=== PATIENT | female | born 1975 | race Caucasian/White ===

== ENCOUNTER 2020-11-19 09:16 | Outpatient (CLI) | payer OTHER | END 2020-11-19 09:17 | disposition home or self-care (01) | LOC: BICMAMMO 09:16 | PROVIDERS: ATTEND Family Medicine | DX: Z12.31 Encounter for screening mammogram for malignant neoplasm of breast (principal) | CPT/HCPCS: 77063; 77067 ==

== ENCOUNTER 2021-01-31 21:15 | Inpatient (IN) | payer OTHER ==
[~2021-01-31 21:15] MED LIST: Heparin 1,000 UNITS/ML VIAL ONE
[2021-01-31] MEDS ORDERED: hydrALAZINE 20 MG/ML VIAL SLOW IVP PRN (21:51)
[2021-01-31] MEDS ORDERED: Acetaminophen 650 MG Suppository PR PRN (21:55)
[2021-01-31] MEDS ORDERED: Enoxaparin Sodium 40 MG/0.4 ML SYRINGE SC SCH (22:00)
[2021-02-01] MEDS: Piperacillin/Tazobactam 4.5 GM in Sodium Chloride 0.9% 100 ML IVPB SCH ×5 (00:20→23:23)
[2021-02-01] MEDS: Lactated Ringer's 1,000 ML IV SCH ×4 (00:21→23:45)
[2021-02-01 01:08] VITALS: BMI 43.4
[2021-02-01 01:29] LABS: SARS-CoV-2 NAA Rapid Test Not Detected (NotDetected)
[2021-02-01 05:24] LABS: #Basophils 0.1 thou/uL (0.0-0.2); #Eosinphils 0.1 thou/uL (0.0-0.7); #Lymphocytes 1.6 thou/uL (1.20-3.40); #Monocytes 1.6 thou/uL (0.11-0.59); #Neutrophils 9.7 thou/uL (1.40-6.50); %Basophils 0.4 % (0.0-1.0); %Eosinophils 0.6 % (0.0-10.0); %Lymphocytes 12.2 % (21.0-51.0); %Monocytes 12.5 % (0.0-10.0); %Neutrophils 74.3 % (42.0-75.0); Hemoglobin 10.9 g/dL (12.0-16.0); Mean Corpuscular HGB CONC 32.8 g/dL (32.0-36.0); Mean Corpuscular Hemoglobin 29.1 pg (27.0-31.0); Mean Corpuscular Volume 88.7 fL (78.0-98.0); Mean Platelet Volume 7.6 fL (7.4-10.4); Platelet Count 514 thou/uL (130-400); RBC Distribution Width 14.2 % (11.5-14.5); Red Blood Cell (RBC) Count 3.74 mill/uL (4.20-5.40); White Blood Cell (WBC) Count 13.1 thou/uL (4.8-10.8)
[2021-02-01 05:45] LABS: ALT (SGPT) 50 U/L (8-55); AST (SGOT) 44 U/L (5-34); Albumin 3.1 g/dL (3.5-5.0); Alkaline Phosphatase 173 U/L (40-110); Anion Gap 14 mmol/L (10-20); BUN (Urea Nitrogen) 7 mg/dL (7.0-18.7); Bilirubin, Total 0.6 mg/dL (0.2-1.2); Calc. Creatinine Clearance 197 mL/min (70-130); Calcium 8.8 mg/dL (7.8-10.44); Carbon Dioxide 24 mmol/L (22-29); Chloride 102 mmol/L (98-107); Globulin 3.6 g/dL (2.4-3.5); Glucose 103 mg/dL (70-105); Protein, Total 6.7 g/dL (6.0-8.3); Sodium 136 mmol/L (136-145)
[2021-02-01] MEDS: Ondansetron PF 4 MG/2 ML Vial IVP PRN ×2 (07:04→13:54)
[2021-02-01] MEDS: Famotidine/PF 20 mg/2ml Vial SLOW IVP SCH ×2 (08:09→20:13)
[2021-02-01] MEDS: Fluconazole In NaCl,Iso-Osm 200 MG in Premix Bag 1 BAG IVPB SCH (08:09)
[2021-02-01] MEDS ORDERED: Iopamidol 370 76% 50 ML VIAL FS ONE (09:05)
[2021-02-01] MEDS ORDERED: Iopamidol-370 76% 500 ML 1 ML ONE (09:05)
[2021-02-01] MEDS: Morphine 2 MG/ML VIAL SLOW IVP PRN (10:13)
[2021-02-01] MEDS: Ketorolac Tromethamine 30 MG/ML VIAL IVP PRN ×2 (13:53→20:13)
[2021-02-01] MEDS: Morphine 4 MG/ML VIAL SLOW IVP PRN ×2 (17:23→23:23)
[2021-02-01] MEDS: Enoxaparin Sodium 40 MG/0.4 ML SYRINGE SC SCH (20:13)
[2021-02-02] MEDS: Lactated Ringer's 1,000 ML IV SCH ×3 (05:02→23:48)
[2021-02-02] MEDS: Piperacillin/Tazobactam 4.5 GM in Sodium Chloride 0.9% 100 ML IVPB SCH ×4 (05:02→23:47)
[2021-02-02] MEDS: Ketorolac Tromethamine 30 MG/ML VIAL IVP PRN ×3 (05:10→20:26)
[2021-02-02] MEDS: Famotidine/PF 20 mg/2ml Vial SLOW IVP SCH ×2 (09:00→20:26)
[2021-02-02] MEDS: Fluconazole In NaCl,Iso-Osm 200 MG in Premix Bag 1 BAG IVPB SCH (09:00)
[2021-02-02 13:26] LABS: #Eosinphils 0.2 thou/uL (0.0-0.7); #Lymphocytes 2.2 thou/uL (1.20-3.40); #Neutrophils 5.2 thou/uL (1.40-6.50); %Basophils 0.3 % (0.0-1.0); %Lymphocytes 25.7 % (21.0-51.0); Hemoglobin 10.5 g/dL (12.0-16.0); Mean Corpuscular HGB CONC 32.2 g/dL (32.0-36.0); Mean Corpuscular Volume 90.1 fL (78.0-98.0); Mean Platelet Volume 7.6 fL (7.4-10.4); Platelet Count 454 thou/uL (130-400); RBC Distribution Width 14.1 % (11.5-14.5); Red Blood Cell (RBC) Count 3.62 mill/uL (4.20-5.40); White Blood Cell (WBC) Count 8.6 thou/uL (4.8-10.8)
[2021-02-02 13:47] LABS: ALT (SGPT) 40 U/L (8-55); AST (SGOT) 30 U/L (5-34); Albumin 3.2 g/dL (3.5-5.0); Alkaline Phosphatase 157 U/L (40-110); Anion Gap 14 mmol/L (10-20); BUN (Urea Nitrogen) 9 mg/dL (7.0-18.7); Bilirubin, Total 0.4 mg/dL (0.2-1.2); Calc. Creatinine Clearance 203 mL/min (70-130); Calcium 9.2 mg/dL (7.8-10.44); Carbon Dioxide 25 mmol/L (22-29); Chloride 103 mmol/L (98-107); Globulin 3.9 g/dL (2.4-3.5); Glucose 82 mg/dL (70-105); Protein, Total 7.1 g/dL (6.0-8.3); Sodium 138 mmol/L (136-145)
[2021-02-02] MEDS: Enoxaparin Sodium 40 MG/0.4 ML SYRINGE SC SCH (20:26)
[2021-02-03] MEDS: Piperacillin/Tazobactam 4.5 GM in Sodium Chloride 0.9% 100 ML IVPB SCH ×4 (05:51→23:48)
[2021-02-03] MEDS: Ketorolac Tromethamine 30 MG/ML VIAL IVP PRN ×3 (05:51→20:07)
[2021-02-03] MEDS: Ondansetron PF 4 MG/2 ML Vial IVP PRN (05:51)
[2021-02-03] MEDS: Lactated Ringer's 1,000 ML IV SCH ×2 (06:00→15:48)
[2021-02-03] MEDS: Famotidine/PF 20 mg/2ml Vial SLOW IVP SCH ×2 (09:00→20:07)
[2021-02-03] MEDS: Fluconazole In NaCl,Iso-Osm 200 MG in Premix Bag 1 BAG IVPB SCH (09:01)
[2021-02-03] MEDS: Morphine 4 MG/ML VIAL SLOW IVP PRN ×2 (16:22→23:47)
[2021-02-03] MEDS: Enoxaparin Sodium 40 MG/0.4 ML SYRINGE SC SCH (20:07)
[2021-02-03] MEDS: Multivitamins, Adult 10 ML, Folic Acid 1 MG, Thiamine HCl 100 MG in Dextrose 5 %-0.45 %... IV SCH (20:40)
[2021-02-04] MEDS: Lactated Ringer's 1,000 ML IV SCH ×4 (00:15→18:16)
[2021-02-04] MEDS: Piperacillin/Tazobactam 4.5 GM in Sodium Chloride 0.9% 100 ML IVPB SCH ×4 (05:18→23:53)
[2021-02-04] MEDS: Ketorolac Tromethamine 30 MG/ML VIAL IVP PRN ×2 (05:21→19:36)
[2021-02-04 05:58] LABS: #Basophils 0.1 thou/uL (0.0-0.2); #Eosinphils 0.2 thou/uL (0.0-0.7); #Lymphocytes 2.4 thou/uL (1.20-3.40); #Monocytes 0.5 thou/uL (0.11-0.59); #Neutrophils 2.7 thou/uL (1.40-6.50); %Basophils 0.9 % (0.0-1.0); %Eosinophils 2.8 % (0.0-10.0); %Lymphocytes 41.1 % (21.0-51.0); %Neutrophils 46.3 % (42.0-75.0); Hemoglobin 9.1 g/dL (12.0-16.0); Mean Corpuscular Volume 89.9 fL (78.0-98.0); Mean Platelet Volume 7.7 fL (7.4-10.4); Platelet Count 422 thou/uL (130-400); RBC Distribution Width 14.2 % (11.5-14.5); Red Blood Cell (RBC) Count 3.38 mill/uL (4.20-5.40); White Blood Cell (WBC) Count 5.9 thou/uL (4.8-10.8)
[2021-02-04 06:05] LABS: ALT (SGPT) 47 U/L (8-55); AST (SGOT) 68 U/L (5-34); Albumin 3.1 g/dL (3.5-5.0); Alkaline Phosphatase 165 U/L (40-110); Anion Gap 12 mmol/L (10-20); BUN (Urea Nitrogen) 8 mg/dL (7.0-18.7); Bilirubin, Total 0.4 mg/dL (0.2-1.2); Calc. Creatinine Clearance 206 mL/min (70-130); Calcium 8.9 mg/dL (7.8-10.44); Carbon Dioxide 27 mmol/L (22-29); Chloride 104 mmol/L (98-107); Globulin 3.5 g/dL (2.4-3.5); Glucose 105 mg/dL (70-105); Potassium 3.8 mmol/L (3.5-5.1); Protein, Total 6.6 g/dL (6.0-8.3); Sodium 139 mmol/L (136-145)
[2021-02-04] MEDS: Fluconazole In NaCl,Iso-Osm 200 MG in Premix Bag 1 BAG IVPB SCH (09:07)
[2021-02-04] MEDS: Famotidine/PF 20 mg/2ml Vial SLOW IVP SCH ×2 (09:07→19:34)
[2021-02-04] MEDS: Ondansetron PF 4 MG/2 ML Vial IVP PRN (12:39)
[2021-02-04] MEDS ORDERED: Furosemide 40 MG/4 ML VIAL SLOW IVP SCH (15:15)
[2021-02-04] MEDS: Enoxaparin Sodium 40 MG/0.4 ML SYRINGE SC SCH (19:34)
[2021-02-04] MEDS: Multivitamins, Adult 10 ML, Folic Acid 1 MG, Thiamine HCl 100 MG in Dextrose 5 %-0.45 %... IV SCH (19:34)
[2021-02-04] MEDS: Morphine 2 MG/ML VIAL SLOW IVP PRN (23:59)
[2021-02-05] MEDS: Piperacillin/Tazobactam 4.5 GM in Sodium Chloride 0.9% 100 ML IVPB SCH ×4 (05:35→23:19)
[2021-02-05] MEDS: Ketorolac Tromethamine 30 MG/ML VIAL IVP PRN ×2 (05:38→15:40)
[2021-02-05] MEDS: Lactated Ringer's 1,000 ML IV SCH ×2 (06:03→08:44)
[2021-02-05] MEDS: Famotidine/PF 20 mg/2ml Vial SLOW IVP SCH ×2 (08:46→20:05)
[2021-02-05] MEDS: Fluconazole In NaCl,Iso-Osm 200 MG in Premix Bag 1 BAG IVPB SCH (08:46)
[2021-02-05] MEDS: D5W-AA 4.25% with LYTES 1,000 ML IV SCH (15:31)
[2021-02-05] MEDS: Enoxaparin Sodium 40 MG/0.4 ML SYRINGE SC SCH (20:08)
[2021-02-05] MEDS: Morphine 2 MG/ML VIAL SLOW IVP PRN (23:25)
[2021-02-06] MEDS: D5W-AA 4.25% with LYTES 1,000 ML IV SCH ×2 (02:17→14:51)
[2021-02-06 05:20] LABS: #Basophils 0.1 thou/uL (0.0-0.2); #Eosinphils 0.2 thou/uL (0.0-0.7); #Lymphocytes 2.5 thou/uL (1.20-3.40); #Monocytes 0.7 thou/uL (0.11-0.59); #Neutrophils 2.9 thou/uL (1.40-6.50); %Basophils 1.3 % (0.0-1.0); %Eosinophils 3.7 % (0.0-10.0); %Lymphocytes 39.2 % (21.0-51.0); %Monocytes 10.2 % (0.0-10.0); %Neutrophils 45.6 % (42.0-75.0); Mean Corpuscular HGB CONC 30.5 g/dL (32.0-36.0); Mean Corpuscular Hemoglobin 27.1 pg (27.0-31.0); Mean Corpuscular Volume 88.9 fL (78.0-98.0); Mean Platelet Volume 7.8 fL (7.4-10.4); Platelet Count 396 thou/uL (130-400); RBC Distribution Width 14.3 % (11.5-14.5); Red Blood Cell (RBC) Count 3.69 mill/uL (4.20-5.40); White Blood Cell (WBC) Count 6.5 thou/uL (4.8-10.8)
[2021-02-06 05:46] LABS: ALT (SGPT) 87 U/L (8-55); AST (SGOT) 110 U/L (5-34); Alkaline Phosphatase 142 U/L (40-110); Anion Gap 10 mmol/L (10-20); BUN (Urea Nitrogen) 6 mg/dL (7.0-18.7); Bilirubin, Total 0.4 mg/dL (0.2-1.2); CRP (Inflammatory) 3.45 mg/dL (= or < 0.5); Calc. Creatinine Clearance 192 mL/min (70-130); Carbon Dioxide 29 mmol/L (22-29); Chloride 104 mmol/L (98-107); Globulin 3.5 g/dL (2.4-3.5); Glucose 114 mg/dL (70-105); Potassium 3.9 mmol/L (3.5-5.1); Protein, Total 6.5 g/dL (6.0-8.3); Sodium 139 mmol/L (136-145)
[2021-02-06] MEDS: Lactated Ringer's 1,000 ML IV SCH ×2 (05:50→18:20)
[2021-02-06] MEDS: Piperacillin/Tazobactam 4.5 GM in Sodium Chloride 0.9% 100 ML IVPB SCH ×3 (05:51→18:21)
[2021-02-06] MEDS: Famotidine/PF 20 mg/2ml Vial SLOW IVP SCH ×2 (08:55→20:26)
[2021-02-06] MEDS: Fluconazole In NaCl,Iso-Osm 200 MG in Premix Bag 1 BAG IVPB SCH (08:56)
[2021-02-06] MEDS: Enoxaparin Sodium 40 MG/0.4 ML SYRINGE SC SCH (20:26)
[2021-02-06] MEDS: Morphine 2 MG/ML VIAL SLOW IVP PRN (20:36)
[2021-02-07] MEDS: Piperacillin/Tazobactam 4.5 GM in Sodium Chloride 0.9% 100 ML IVPB SCH ×5 (00:19→23:55)
[2021-02-07] MEDS: D5W-AA 4.25% with LYTES 1,000 ML IV SCH ×2 (02:46→17:40)
[2021-02-07] MEDS: Lactated Ringer's 1,000 ML IV SCH ×2 (06:41→18:56)
[2021-02-07] MEDS: Fluconazole In NaCl,Iso-Osm 200 MG in Premix Bag 1 BAG IVPB SCH (09:18)
[2021-02-07] MEDS: Famotidine/PF 20 mg/2ml Vial SLOW IVP SCH ×2 (09:18→21:40)
[2021-02-07] MEDS: Ondansetron PF 4 MG/2 ML Vial IVP PRN (12:04)
[2021-02-07] MEDS: Ketorolac Tromethamine 30 MG/ML VIAL IVP PRN (18:55)
[2021-02-07] MEDS: Enoxaparin Sodium 40 MG/0.4 ML SYRINGE SC SCH (21:39)
[2021-02-07] MEDS: Morphine 4 MG/ML VIAL SLOW IVP PRN (23:58)
[2021-02-08] MEDS: Piperacillin/Tazobactam 4.5 GM in Sodium Chloride 0.9% 100 ML IVPB SCH ×3 (05:34→18:31)
[2021-02-08] MEDS: Lactated Ringer's 1,000 ML IV SCH ×2 (05:34→20:31)
[2021-02-08 06:09] LABS: #Basophils 0.1 thou/uL (0.0-0.2); #Eosinphils 0.3 thou/uL (0.0-0.7); #Lymphocytes 2.2 thou/uL (1.20-3.40); #Monocytes 0.9 thou/uL (0.11-0.59); #Neutrophils 5.8 thou/uL (1.40-6.50); %Basophils 0.7 % (0.0-1.0); %Eosinophils 3.7 % (0.0-10.0); %Lymphocytes 23.7 % (21.0-51.0); %Monocytes 9.8 % (0.0-10.0); %Neutrophils 62.1 % (42.0-75.0); Hemoglobin 10.8 g/dL (12.0-16.0); Mean Corpuscular HGB CONC 31.6 g/dL (32.0-36.0); Mean Corpuscular Hemoglobin 28.3 pg (27.0-31.0); Mean Corpuscular Volume 89.5 fL (78.0-98.0); Mean Platelet Volume 7.6 fL (7.4-10.4); Platelet Count 404 thou/uL (130-400); RBC Distribution Width 15.1 % (11.5-14.5); White Blood Cell (WBC) Count 9.3 thou/uL (4.8-10.8)
[2021-02-08 06:18] LABS: INR-International Normal Ratio 1.1; Prothrombin Time 14.4 sec (12.0-14.7)
[2021-02-08 06:33] LABS: ALT (SGPT) 111 U/L (8-55); AST (SGOT) 119 U/L (5-34); Albumin 3.3 g/dL (3.5-5.0); Alkaline Phosphatase 122 U/L (40-110); Anion Gap 11 mmol/L (10-20); BUN (Urea Nitrogen) 9 mg/dL (7.0-18.7); Bilirubin, Total 0.4 mg/dL (0.2-1.2); CRP (Inflammatory) 1.95 mg/dL (= or < 0.5); Calc. Creatinine Clearance 171 mL/min (70-130); Calcium 9.1 mg/dL (7.8-10.44); Carbon Dioxide 28 mmol/L (22-29); Chloride 103 mmol/L (98-107); Globulin 3.6 g/dL (2.4-3.5); Glucose 104 mg/dL (70-105); Magnesium 2.2 mg/dL (1.6-2.6); Phosphorus 4.2 mg/dL (2.3-4.7); Potassium 3.8 mmol/L (3.5-5.1); Protein, Total 6.9 g/dL (6.0-8.3); Sodium 138 mmol/L (136-145)
[2021-02-08] MEDS: Fluconazole In NaCl,Iso-Osm 200 MG in Premix Bag 1 BAG IVPB SCH (09:30)
[2021-02-08] MEDS: Famotidine/PF 20 mg/2ml Vial SLOW IVP SCH ×2 (09:31→20:32)
[2021-02-08] MEDS: D5W-AA 4.25% with LYTES 1,000 ML IV SCH (11:37)
[2021-02-08] MEDS: Ketorolac Tromethamine 30 MG/ML VIAL IVP PRN (16:46)
[2021-02-08] MEDS ORDERED: Dextrose 5% in Water 1,000 ML IV PRN (18:15)
[2021-02-08] MEDS ORDERED: Dextrose 50% Abboject 50 ML SYRINGE IVP PRN (18:15)
[2021-02-08] MEDS ORDERED: Insulin Regular 300 UNITS/3 ML VIAL SC PRN (18:15)
[2021-02-08] MEDS ORDERED: Fat Emulsion 250 ML, Multivitamins, Adult 10 ML, TRACE ELEMENT CONCENTRATE 1 ML in D15W... IV SCH (18:30)
[2021-02-08] MEDS: Enoxaparin Sodium 40 MG/0.4 ML SYRINGE SC SCH (20:32)
[2021-02-08] MEDS: Fat Emulsion 250 ML, Multivitamins, Adult 10 ML, TRACE ELEMENT CONCENTRATE 1 ML in D15W... IV SCH (22:05)
[2021-02-08] MEDS: Morphine 4 MG/ML VIAL SLOW IVP PRN (22:26)
[2021-02-09] MEDS: Morphine 4 MG/ML VIAL SLOW IVP PRN ×2 (00:35→22:59)
[2021-02-09] MEDS: Piperacillin/Tazobactam 4.5 GM in Sodium Chloride 0.9% 100 ML IVPB SCH ×5 (00:35→23:00)
[2021-02-09] MEDS: Ondansetron PF 4 MG/2 ML Vial IVP PRN ×2 (05:53→16:02)
[2021-02-09 06:15] LABS: INR-International Normal Ratio 1.1; Prothrombin Time 14.5 sec (12.0-14.7)
[2021-02-09 06:16] LABS: PTT 28.7 sec (22.9-36.1)
[2021-02-09 06:26] LABS: ALT (SGPT) 112 U/L (8-55); AST (SGOT) 104 U/L (5-34); Albumin 3.2 g/dL (3.5-5.0); Alkaline Phosphatase 112 U/L (40-110); Anion Gap 13 mmol/L (10-20); BUN (Urea Nitrogen) 11 mg/dL (7.0-18.7); Bilirubin, Total 0.4 mg/dL (0.2-1.2); Calc. Creatinine Clearance 189 mL/min (70-130); Carbon Dioxide 21 mmol/L (22-29); Chloride 106 mmol/L (98-107); Globulin 3.7 g/dL (2.4-3.5); Glucose 96 mg/dL (70-105); Magnesium 2.3 mg/dL (1.6-2.6); Phosphorus 4.4 mg/dL (2.3-4.7); Potassium 4.4 mmol/L (3.5-5.1); Protein, Total 6.9 g/dL (6.0-8.3); Sodium 136 mmol/L (136-145)
[2021-02-09] MEDS: Lactated Ringer's 1,000 ML IV SCH (08:33)
[2021-02-09] MEDS: Famotidine/PF 20 mg/2ml Vial SLOW IVP SCH ×2 (10:18→19:40)
[2021-02-09] MEDS: Fluconazole In NaCl,Iso-Osm 200 MG in Premix Bag 1 BAG IVPB SCH (10:18)
[2021-02-09] MEDS: Ketorolac Tromethamine 30 MG/ML VIAL IVP PRN (16:02)
[2021-02-09] MEDS: Enoxaparin Sodium 40 MG/0.4 ML SYRINGE SC SCH (19:40)
[2021-02-09] MEDS: Fat Emulsion 250 ML, Multivitamins, Adult 10 ML, TRACE ELEMENT CONCENTRATE 1 ML in D15W... IV SCH (23:00)
[2021-02-10] MEDS: Piperacillin/Tazobactam 4.5 GM in Sodium Chloride 0.9% 100 ML IVPB SCH ×3 (05:24→18:31)
[2021-02-10] MEDS: Ondansetron PF 4 MG/2 ML Vial IVP PRN (06:14)
[2021-02-10] MEDS: Ketorolac Tromethamine 30 MG/ML VIAL IVP PRN ×2 (06:14→20:56)
[2021-02-10] MEDS: Lactated Ringer's 1,000 ML IV SCH ×3 (06:20→23:09)
[2021-02-10 06:36] LABS: ALT (SGPT) 91 U/L (8-55); AST (SGOT) 79 U/L (5-34); Albumin 3.3 g/dL (3.5-5.0); Alkaline Phosphatase 105 U/L (40-110); Anion Gap 10 mmol/L (10-20); BUN (Urea Nitrogen) 13 mg/dL (7.0-18.7); Bilirubin, Total 0.4 mg/dL (0.2-1.2); Calc. Creatinine Clearance 182 mL/min (70-130); Carbon Dioxide 27 mmol/L (22-29); Chloride 104 mmol/L (98-107); Globulin 3.5 g/dL (2.4-3.5); Glucose 91 mg/dL (70-105); Magnesium 2.1 mg/dL (1.6-2.6); Potassium 4.4 mmol/L (3.5-5.1); Protein, Total 6.8 g/dL (6.0-8.3); Sodium 137 mmol/L (136-145)
[2021-02-10] MEDS: Famotidine/PF 20 mg/2ml Vial SLOW IVP SCH ×2 (09:54→20:56)
[2021-02-10] MEDS: Fluconazole In NaCl,Iso-Osm 200 MG in Premix Bag 1 BAG IVPB SCH (10:02)
[2021-02-10] MEDS: Enoxaparin Sodium 40 MG/0.4 ML SYRINGE SC SCH (20:56)
[2021-02-10] MEDS: Fat Emulsion 250 ML, Multivitamins, Adult 10 ML, TRACE ELEMENT CONCENTRATE 1 ML in D15W... IV SCH (22:40)
[2021-02-10] MEDS: Morphine 4 MG/ML VIAL SLOW IVP PRN (23:57)
[2021-02-11] MEDS: Ondansetron PF 4 MG/2 ML Vial IVP PRN ×2 (06:05→20:33)
[2021-02-11] MEDS: Piperacillin/Tazobactam 4.5 GM in Sodium Chloride 0.9% 100 ML IVPB SCH ×2 (06:06)
[2021-02-11] MEDS: Ketorolac Tromethamine 30 MG/ML VIAL IVP PRN (06:12)
[2021-02-11 06:43] LABS: ALT (SGPT) 85 U/L (8-55); AST (SGOT) 81 U/L (5-34); Albumin 3.3 g/dL (3.5-5.0); Alkaline Phosphatase 100 U/L (40-110); Anion Gap 7 mmol/L (10-20); BUN (Urea Nitrogen) 13 mg/dL (7.0-18.7); Bilirubin, Total 0.4 mg/dL (0.2-1.2); Calc. Creatinine Clearance 177 mL/min (70-130); Calcium 9.1 mg/dL (7.8-10.44); Carbon Dioxide 29 mmol/L (22-29); Chloride 105 mmol/L (98-107); Globulin 3.5 g/dL (2.4-3.5); Glucose 105 mg/dL (70-105); Magnesium 2.2 mg/dL (1.6-2.6); Phosphorus 4.4 mg/dL (2.3-4.7); Potassium 4.1 mmol/L (3.5-5.1); Protein, Total 6.8 g/dL (6.0-8.3); Sodium 137 mmol/L (136-145)
[2021-02-11] MEDS ORDERED: Morphine 4 MG/ML VIAL SLOW IVP PRN (08:13)
[2021-02-11] MEDS ORDERED: Morphine 2 MG/ML VIAL SLOW IVP PRN (08:13)
[2021-02-11] MEDS: Fluconazole In NaCl,Iso-Osm 200 MG in Premix Bag 1 BAG IVPB SCH (08:24)
[2021-02-11] MEDS: Famotidine/PF 20 mg/2ml Vial SLOW IVP SCH (08:24)
[2021-02-11] MEDS: Lactated Ringer's 1,000 ML IV SCH (08:38)
[2021-02-11 09:29] LABS: SARS-CoV-2 NAA Rapid Test Not Detected (NotDetected)
[2021-02-11] MEDS ORDERED: Piperacillin/Tazobactam 4.5 GM in Sodium Chloride 0.9% 100 ML IVPB SCH (12:00)
[2021-02-11] MEDS ORDERED: traMADol HCl 50 MG TAB PO PRN (14:24)
[2021-02-11] MEDS ORDERED: Acetaminophen 500 MG TAB PO PRN (14:24)
[2021-02-11] MEDS: Enoxaparin Sodium 40 MG/0.4 ML SYRINGE SC SCH (20:33)
[2021-02-12] MEDS: Ketorolac Tromethamine 30 MG/ML VIAL IVP PRN (00:33)
[2021-02-12] MEDS ORDERED: Polyethylene Glycol 3350 17 GM Packet PO SCH (09:00)
[2021-02-12] MEDS ORDERED: Fluconazole In NaCl,Iso-Osm 200 MG in Premix Bag 1 BAG IVPB SCH (09:00)
[2021-02-12] MEDS ORDERED: Calcium/Multivitamins W-Iron 1 TAB TAB PO SCH (09:00)
[2021-02-12] MEDS ORDERED: MULTIVIT/IRON SULF/FOLIC ACID 1 EACH TAB PO SCH (09:30)
[2021-02-12 11:15] VITALS: BP 125/84; TEMP 97.7
[2021-02-13] MEDS ORDERED: MULTIVIT/IRON SULF/FOLIC ACID 1 EACH TAB PO SCH (09:00)
== END 2021-02-12 12:39 | disposition short-term general hospital, planned readmission (82) | DRG 872 ==
LOC: ERS 21:15 → SURG A 21:48
PROVIDERS: ADMIT Specialist; ATTEND Specialist
PROC: 02HV33Z Insertion of Infusion Device into Superior Vena Cava, Percutaneous Approach (ICD-10-PCS; principal; 2021-02-08)
DX: A41.9 Sepsis, unspecified organism (principal); J90 Pleural effusion, not elsewhere classified; J98.11 Atelectasis; Z20.822 Contact with and (suspected) exposure to COVID-19; Z90.710 Acquired absence of both cervix and uterus; Z88.1 Allergy status to other antibiotic agents; Z88.2 Allergy status to sulfonamides
CPT/HCPCS: 36415; 36416; 36569; 74022; 74160; 74177; 80053; 83735; 84100; 84134; 85025; 85610; 85730; 86140; 87324; 87449; C1751; J1450; J1644; J1650; J1885; J1940; J2270; J2405; J2543; J3411; J3490; J7042; Q9967; S0028; U0002; U0005

== ENCOUNTER 2021-07-13 09:30 | Outpatient (CLI) | payer OTHER | END 2021-07-13 09:31 | disposition home or self-care (01) | LOC: TBSIIMAG 09:30 | PROVIDERS: ATTEND Family Medicine | DX: R22.1 Localized swelling, mass and lump, neck (principal); M50.222 Other cervical disc displacement at C5-C6 level | CPT/HCPCS: 70543 ==

== ENCOUNTER 2021-08-01 08:57 | Outpatient (CLI) | payer OTHER | END 2021-08-01 08:58 | disposition home or self-care (01) | LOC: NM 08:57 | PROVIDERS: ATTEND Family Medicine | DX: R22.1 Localized swelling, mass and lump, neck (principal); M19.012 Primary osteoarthritis, left shoulder; M19.011 Primary osteoarthritis, right shoulder; M19.09 Primary osteoarthritis, other specified site | CPT/HCPCS: 78306; A9503 ==

== ENCOUNTER 2022-06-13 11:02 | Outpatient (CLI) | payer OTHER | END 2022-06-13 11:03 | disposition home or self-care (01) | LOC: BICMAMMO 11:02 | PROVIDERS: ATTEND Family Medicine | DX: Z12.31 Encounter for screening mammogram for malignant neoplasm of breast (principal) | CPT/HCPCS: 77063; 77067 ==